=== PATIENT | male | born 1930 | race Caucasian/White ===

== ENCOUNTER 2017-07-08 18:36 | Inpatient (IN) | payer OTHER ==
[~2017-07-08] VITALS: Ht 154.9 cm; Wt 69.9 kg
[2017-07-08] MEDS ORDERED: FORTAMET1000 MG (18:50)
[2017-07-08] MEDS ORDERED: GLIBURIDE (18:51)
[2017-07-08] MEDS ORDERED: ZOCOR40 MG (18:51)
[2017-07-08] MEDS ORDERED: PLAVIX75 MG (18:51)
== END 2017-07-11 12:56 | disposition home or self-care (01) | DRG 684 ==
LOC: ER 18:36 → MEDI 07-09 10:21 → MEDJ 07-09 10:21 → MEDI 07-10 07:56
PROC: 3E0F7GC Introduction of Other Therapeutic Substance into Respiratory Tract, Via Natural or Artificial Opening (ICD-10-PCS; principal; 2017-07-09)
PROC: BW40ZZZ Ultrasonography of Abdomen (ICD-10-PCS; 2017-07-09)
DX: N17.8 Other acute kidney failure (principal); E11.3293 Type 2 diabetes mellitus with mild nonproliferative diabetic retinopathy without macular edema, bilateral; E11.42 Type 2 diabetes mellitus with diabetic polyneuropathy; E78.4 Other hyperlipidemia; E11.65 Type 2 diabetes mellitus with hyperglycemia; R97.20 Elevated prostate specific antigen [PSA]; E86.0 Dehydration; E11.22 Type 2 diabetes mellitus with diabetic chronic kidney disease; I13.10 Hypertensive heart and chronic kidney disease without heart failure, with stage 1 through stage 4 chronic kidney disease, or unspecified chronic kidney disease; N18.1 Chronic kidney disease, stage 1; I70.292 Other atherosclerosis of native arteries of extremities, left leg; J22 Unspecified acute lower respiratory infection

== ENCOUNTER 2017-07-17 09:09 | Inpatient (IN) | payer OTHER ==
[~2017-07-17] VITALS: Ht 157.5 cm; Wt 72.6 kg
[~2017-07-17 09:09] MED LIST: FORTAMET1000 MG; GLIBURIDE; PLAVIX75 MG; ZOCOR40 MG
[2017-07-17] MEDS ORDERED: METFORMIN HCL500 MG (09:15)
[2017-07-17] MEDS ORDERED: PLAVIX75 MG (09:15)
== END 2017-07-21 09:29 | disposition home or self-care (01) | DRG 378 ==
LOC: ER 09:09 → ICU-2 17:35 → SEC-K 07-19 09:35 → MEDJ 07-19 09:48 → MEDI 07-19 09:48 → MEDJ 07-21 09:29
PROC: BW21Y0Z Computerized Tomography (CT Scan) of Abdomen and Pelvis using Other Contrast, Unenhanced and Enhanced (ICD-10-PCS; 2017-07-17)
PROC: 30233N1 Transfusion of Nonautologous Red Blood Cells into Peripheral Vein, Percutaneous Approach (ICD-10-PCS; 2017-07-17)
PROC: 0DB78ZX Excision of Stomach, Pylorus, Via Natural or Artificial Opening Endoscopic, Diagnostic (ICD-10-PCS; principal; 2017-07-18)
PROC: 4A12X4Z Monitoring of Cardiac Electrical Activity, External Approach (ICD-10-PCS; 2017-07-19)
DX: K92.1 Melena (principal); K22.10 Ulcer of esophagus without bleeding; D50.0 Iron deficiency anemia secondary to blood loss (chronic); E11.3293 Type 2 diabetes mellitus with mild nonproliferative diabetic retinopathy without macular edema, bilateral; E11.42 Type 2 diabetes mellitus with diabetic polyneuropathy; I11.9 Hypertensive heart disease without heart failure; E78.4 Other hyperlipidemia; I70.293 Other atherosclerosis of native arteries of extremities, bilateral legs; K29.60 Other gastritis without bleeding

== ENCOUNTER 2018-10-03 12:07 | Emergency (ER) | payer OTHER ==
[~2018-10-03] VITALS: Ht 157.5 cm; Wt 68.0 kg
[~2018-10-03 12:07] MED LIST changes: +METFORMIN HCL500 MG
[2018-10-03] MEDS ORDERED: ENALAPRIL MALEAT5 MG (12:24)
[2018-10-03] MEDS ORDERED: VERAPAMIL ER100 MG (12:24)
[2018-10-03] MEDS ORDERED: PROTONIX20 MG (12:24)
== END 2018-10-03 15:43 | disposition home or self-care (01) ==
LOC: ER 12:07
DX: S80.12XA Contusion of left lower leg, initial encounter (principal); M79.662 Pain in left lower leg; L03.116 Cellulitis of left lower limb; X58.XXXA Exposure to other specified factors, initial encounter; Y93.89 Activity, other specified; Y92.89 Other specified places as the place of occurrence of the external cause; Y99.8 Other external cause status

== ENCOUNTER 2018-10-26 13:09 | Inpatient (IN) | payer OTHER ==
[~2018-10-26] VITALS: Ht 157.5 cm; Wt 68.9 kg
[~2018-10-26 13:09] MED LIST changes: +ENALAPRIL MALEAT5 MG; +PROTONIX20 MG; +VERAPAMIL ER100 MG
[2018-10-26] MEDS ORDERED: VASOTEC20 M1 (13:36)
[2018-10-26] MEDS ORDERED: ZOCOR20 MG (13:36)
[2018-10-26] MEDS ORDERED: NEURONTIN300 MG (13:37)
[2018-10-26] MEDS ORDERED: GLYNASE6 MG (13:37)
--- NOTE | 2018-10-26 13:42 | NUR ---
REFERIDA POR DRA ENEDELIA LEDESMA POR CELULITIS EN PIES DERECHO (DEDO JONO). ALERTA Y ORIENTADO X 3, ACOMPANADO POR CHRISTINA ESPOSA, SE UBICA EN AREA DE OBSERVACION.
--- NOTE | 2018-10-26 17:19 | NUR ---
MRS DIAZ ORIENTA A PT SOBRE ORDENES MEDICAS EL CUAL REFIERE ENTENDER. LE COLECTA MUESTRAS Y LO CANALIZA BAJO MEDIDAS ASEPTICAS PT TOLERA. SE COLECTA CULTIVOS DE SABI Y CULTIVO DE ULCERA. LE REALIZA EKG Y LO PRESENTA A DR HARMON QUIEN EVALUA EL MISMO.
== END 2018-11-18 15:03 | disposition home or self-care (01) | DRG 255 ==
LOC: ER 13:09 → SEC-K 20:36 → MEDJ 20:36 → SURH 20:36 → MEDJ 21:26 → SEC-K 21:51 → SURG 22:02 → SURH 22:17 → MEDI 10-27 20:03 → MEDJ 10-28 18:29
PROVIDERS: ADMIT Specialist
PROC: 0Y6P0Z0 Detachment at Right 1st Toe, Complete, Open Approach (ICD-10-PCS; principal; 2018-11-05)
PROC: B44HZZZ Ultrasonography of Bilateral Lower Extremity Arteries (ICD-10-PCS; 2018-11-05)
PROC: 30233N1 Transfusion of Nonautologous Red Blood Cells into Peripheral Vein, Percutaneous Approach (ICD-10-PCS; 2018-11-05)
PROC: 3E0F7GC Introduction of Other Therapeutic Substance into Respiratory Tract, Via Natural or Artificial Opening (ICD-10-PCS; 2018-11-10)
PROC: 4A033R1 Measurement of Arterial Saturation, Peripheral, Percutaneous Approach (ICD-10-PCS; 2018-11-10)
PROC: B54DZZZ Ultrasonography of Bilateral Lower Extremity Veins (ICD-10-PCS; 2018-11-12)
PROC: BB24ZZZ Computerized Tomography (CT Scan) of Bilateral Lungs (ICD-10-PCS; 2018-11-12)
PROC: B246ZZZ Ultrasonography of Right and Left Heart (ICD-10-PCS; 2018-11-12)
PROC: B44FZZZ Ultrasonography of Right Lower Extremity Arteries (ICD-10-PCS; 2018-11-15)
DX: E11.52 Type 2 diabetes mellitus with diabetic peripheral angiopathy with gangrene (principal); G93.41 Metabolic encephalopathy; I96 Gangrene, not elsewhere classified; L02.611 Cutaneous abscess of right foot; L03.116 Cellulitis of left lower limb; N17.8 Other acute kidney failure; K52.1 Toxic gastroenteritis and colitis; J95.89 Other postprocedural complications and disorders of respiratory system, not elsewhere classified; J98.11 Atelectasis; J91.8 Pleural effusion in other conditions classified elsewhere; I31.3 Pericardial effusion (noninflammatory); B95.2 Enterococcus as the cause of diseases classified elsewhere; B96.5 Pseudomonas (aeruginosa) (mallei) (pseudomallei) as the cause of diseases classified elsewhere; B96.1 Klebsiella pneumoniae [K. pneumoniae] as the cause of diseases classified elsewhere; E11.42 Type 2 diabetes mellitus with diabetic polyneuropathy; E11.319 Type 2 diabetes mellitus with unspecified diabetic retinopathy without macular edema; I13.10 Hypertensive heart and chronic kidney disease without heart failure, with stage 1 through stage 4 chronic kidney disease, or unspecified chronic kidney disease; E11.22 Type 2 diabetes mellitus with diabetic chronic kidney disease; N18.3 Chronic kidney disease, stage 3 (moderate); D63.8 Anemia in other chronic diseases classified elsewhere; K21.9 Gastro-esophageal reflux disease without esophagitis; E11.65 Type 2 diabetes mellitus with hyperglycemia; M10.071 Idiopathic gout, right ankle and foot; T36.8X5A Adverse effect of other systemic antibiotics, initial encounter; Y92.230 Patient room in hospital as the place of occurrence of the external cause; R09.02 Hypoxemia; E86.0 Dehydration; F03.90 Unspecified dementia, unspecified severity, without behavioral disturbance, psychotic disturbance, mood disturbance, and anxiety; Z89.411 Acquired absence of right great toe; I87.2 Venous insufficiency (chronic) (peripheral); I34.0 Nonrheumatic mitral (valve) insufficiency